=== PATIENT | female | born 1980 | race African-American/Black ===

== ENCOUNTER 2022-03-23 06:12 | Inpatient (IN) ==
[2022-03-23] MEDS ORDERED: ANCEF VIAL 1 GRAM ONE (06:34)
[2022-03-23] MEDS ORDERED: NS 100 ML IV 100 ML ONE (06:34)
[2022-03-23] MEDS ORDERED: D5 1/2 NS 1,000 ML 1,000 ML IV ONE ×2 (06:34→08:59)
[2022-03-23] MEDS ORDERED: ANCEF VIAL 1 GRAM IVP ONE (06:40)
[2022-03-23] MEDS ORDERED: ProvayBLUE 0.5% ONE (06:41)
[2022-03-23] MEDS ORDERED: BETADINE SOLN ONE (06:42)
[2022-03-23 06:57] VITALS: BMI 43.7
[2022-03-23] MEDS ORDERED: XYLOCAINE 2 % (PLAIN) ONE (07:10)
[2022-03-23] MEDS ORDERED: ZOFRAN INJ 4 MG VIAL ONE (07:10)
[2022-03-23] MEDS ORDERED: PEPCID 20 MG VIAL ONE (07:10)
[2022-03-23] MEDS ORDERED: VERSED ONE (07:10)
[2022-03-23] MEDS ORDERED: DIPRIVAN VIAL 20 ML ONE (07:10)
[2022-03-23] MEDS ORDERED: OFIRMEV IV 1000 MG VIAL 1,000 MG/100 ML VIAL IV ONE (07:10)
[2022-03-23] MEDS ORDERED: DECADRON INJ ONE (07:10)
[2022-03-23] MEDS ORDERED: FENTANYL VIAL INJ 100 mcg ONE (07:11)
[2022-03-23] MEDS ORDERED: ULTANE GAS IN ONE (07:22)
[2022-03-23] MEDS ORDERED: KETAMINE HCL ONE (07:22)
[2022-03-23] MEDS ORDERED: LACRI-LUBE S.O.P. ONE (07:35)
[2022-03-23] MEDS ORDERED: BRIDION ONE (07:35)
[2022-03-23] MEDS ORDERED: ROBINUL ONE (08:00)
[2022-03-23] MEDS ORDERED: TORADOL 30 MG VIAL ONE (08:01)
[2022-03-23] MEDS ORDERED: EPHEDRINE SULFATE INJ ONE (08:14)
[2022-03-23] MEDS ORDERED: DILAUDID INJ ONE ×2 (08:40→10:17)
[2022-03-23] MEDS ORDERED: PHENERGAN INJ 25 MG IM PRN (10:04)
[2022-03-23] MEDS ORDERED: BARHEMSYS INJ IVP PRN (10:04)
[2022-03-23] MEDS ORDERED: BENADRYL INJ 50 MG VIAL IVP PRN ×2 (10:04→10:43)
[2022-03-23] MEDS ORDERED: DILAUDID INJ IVP PRN (10:04)
[2022-03-23] MEDS ORDERED: MORPHINE SULFATE PCA 30 MG IVP PRN (10:43)
[2022-03-23] MEDS ORDERED: ZOFRAN INJ 4 MG VIAL IVP PRN (10:43)
[2022-03-23] MEDS: TORADOL 30 MG VIAL IVP PRN ×2 (11:11→23:00)
[2022-03-23] MEDS: D5 1/2 NS 1,000 ML 1,000 ML IV SCH ×5 (13:07→22:11)
[2022-03-24] MEDS: D5 1/2 NS 1,000 ML 1,000 ML IV SCH ×5 (04:22→21:16)
[2022-03-24 05:36] LABS: BLOOD UREA NITROGEN 6 mg/dL (7-18); CALCIUM 8.2 mg/dL (8.5-10.1); CARBON DIOXIDE 24.8 mmol/L (21-32); CHLORIDE 102 mmol/L (98-107); COR NA(FOR HYPERGLY) 137 mmol/L (136-145); SODIUM 136 mmol/L (136-145); eGFR NON BLACK RACES > 60 (>60)
[2022-03-24 05:43] LABS: BASOPHILS # (AUTO) 0.1 X10^3/uL (0.0-0.1); BASOPHILS % (AUTO) 0.4 % (0.2-1.0); HEMATOCRIT 34.4 % (36.0-47.0); LYMPHOCYTES % (AUTO) 15.3 % (21.0-51.0); MEAN CORPUSCULAR HGB CONC 33.2 g/dL (33.0-35.0); MEAN CORPUSCULAR VOLUME 78.4 fL (80.0-100.0); MEAN PLATELET VOLUME 7.2 fL (7.4-11.0); MONOCYTES # (AUTO) 0.9 x10^3/uL (0.3-0.8); MONOCYTES % (AUTO) 6.8 % (0.0-13.0); NEUTROPHILS # (AUTO) 10.4 x10^3/uL (2.2-4.8); NEUTROPHILS % (AUTO) 77.5 % (42.0-75.0); RED BLOOD COUNT 4.39 X10^6/uL (3.5-5.4); RED CELL DISTRIBUTION WIDTH 14.3 % (11.6-16.5)
[2022-03-24 05:59] LABS: HEMOGLOBIN 11.4 g/dL (12.0-16.0)
[2022-03-24 06:00] LABS: WHITE BLOOD COUNT 13.4 X10^3/uL (3.6-10.0)
[2022-03-24] MEDS ORDERED: K-DUR TAB 20 MEQ PO PRN (06:20)
[2022-03-24] MEDS ORDERED: POTASSIUM CHL 40 MEQ/NS 0.45% 500 ML IV PRN (06:20)
[2022-03-24] MEDS ORDERED: POTASSIUM CHLORIDE LIQ 20 MEQ UDC PO PRN (06:20)
[2022-03-24] MEDS ORDERED: KLOR-CON PO PRN (06:20)
[2022-03-24] MEDS ORDERED: POTASSIUM CHL 60 MEQ/NS 0.45% 500 ML IV PRN (06:20)
[2022-03-24] MEDS ORDERED: MICRO K EXTEN CAP 10 MEQ PO PRN (06:20)
[2022-03-24] MEDS ORDERED: K-RIDER 10 MEQ/NS 100 ML 10 MEQ/100 ML BAG IV PRN (06:20)
[2022-03-24] MEDS ORDERED: K-DUR TAB 20 MEQ PO ONE (06:29)
[2022-03-24] MEDS ORDERED: PERCOCET TAB 5/325 MG PO PRN (07:43)
[2022-03-24] MEDS ORDERED: MOTRIN TAB 800 MG PO PRN (07:43)
[2022-03-24] MEDS: HYDROCHLOROTHIAZIDE 25 MG TAB PO SCH ×2 (08:19→12:45)
[2022-03-24] MEDS: NORVASC TAB 10 MG PO SCH ×2 (08:19→12:45)
[2022-03-24] MEDS: ESTRACE PO SCH (08:19)
[2022-03-24] MEDS: COLACE CAP 100 MG PO SCH ×2 (08:19→21:16)
[2022-03-24] MEDS: PROTONIX TAB 40 MG PO SCH (08:20)
[2022-03-24] MEDS: BACTROBAN TOPICAL OINT TOP SCH ×2 (14:00→21:16)
[2022-03-24] MEDS ORDERED: SINGULAIR TAB 10 MG PO SCH (21:00)
[2022-03-25] MEDS: D5 1/2 NS 1,000 ML 1,000 ML IV SCH (05:27)
[2022-03-25] MEDS: BACTROBAN TOPICAL OINT TOP SCH (05:28)
[2022-03-25] MEDS: ESTRACE PO SCH (08:16)
[2022-03-25] MEDS: COLACE CAP 100 MG PO SCH (08:16)
[2022-03-25] MEDS: NORVASC TAB 10 MG PO SCH (08:17)
[2022-03-25] MEDS: HYDROCHLOROTHIAZIDE 25 MG TAB PO SCH (08:17)
[2022-03-25] MEDS: PROTONIX TAB 40 MG PO SCH (08:18)
[2022-03-25 08:21] VITALS: BP 120/64
== END 2022-03-25 08:00 | disposition home or self-care (01) | DRG 743 ==
LOC: MED/SURG 06:12
PROVIDERS: ADMIT Specialist; ATTEND Specialist
DX: N94.4 Primary dysmenorrhea; D25.2 Subserosal leiomyoma of uterus; D50.8 Other iron deficiency anemias; N92.5 Other specified irregular menstruation; Z20.822 Contact with and (suspected) exposure to COVID-19